=== PATIENT | female | born 1935 | race Caucasian/White ===

== ENCOUNTER 2016-11-06 16:54 | Emergency (ER) | payer MEDICARE, MEDICAID ==
[~2016-11-06] VITALS: Ht 152.4 cm; Wt 56.7 kg
[~2016-11-06 16:54] MED LIST: AMOX-427 PO; GUAI10SY3 PO; VALS40TA4 PO
--- NOTE | 2016-11-06 17:25 | NUR ---
BENCH JEWELER AT FOR BLOOD DRAW.
--- NOTE | 2016-11-06 17:28 | NUR ---
PT REFUSED IV AND MEDS. MADE AWARE.
[2016-11-06] MEDS ORDERED: IV NS 0.9% 1,000 ML BAG IV ONE (17:30)
[2016-11-06 17:32] LABS: BASOPHILS % (AUTO) 0.5 % (0.0-2.0); EOSINOPHILS # (AUTO) 0.1 /CMM (0.0-0.7); EOSINOPHILS % (AUTO) 0.9 % (0.0-6.0); HEMATOCRIT 36 % (33-45); HEMOGLOBIN 11.9 g/dL (11.5-14.8); LYMPHOCYTES # (AUTO) 4.3 /CMM (0.8-4.8); LYMPHOCYTES % (AUTO) 44.4 % (20.0-44.0); MEAN CORPUSCULAR HEMOGLOBIN 28 PG (26.0-33.0); MEAN CORPUSCULAR HGB CONC 33 g/dl (31.0-36.0); MEAN CORPUSCULAR VOLUME 85 fL (82-100); MONOCYTES # (AUTO) 0.9 /CMM (0.1-1.30); MONOCYTES % (AUTO) 9.2 % (2.0-12.0); NEUTROPHILS # (AUTO) 4.4 /CMM (1.8-8.9); PLATELET COUNT (AUTO) 228 /CMM (150-450); RDW COEFFICIENT OF VARIATION 13.1 (11.5-15.0); RED BLOOD CELL COUNT(AUTO) 4.31 MIL/uL (4.0-5.2); WHITE BLOOD COUNT (AUTO) 9.7 K/uL (4.3-11.0)
[2016-11-06 17:40] LABS: APPEARANCE,URINE Clear (CLEAR); BILIRUBIN,URINE Negative (NEGATIVE); BLOOD, URINE Small Ery/uL (NEGATIVE); COLOR,URINE Dark (YELLOW); KETONES,URINE Negative (NEGATIVE); LEUKOCYTE ESTERASE ,URINE Negative (NEGATIVE); NITRITE, URINE Negative (NEGATIVE); PROTEIN,URINE Negative (NEGATIVE); UGLUCOSE Negative (NEGATIVE); UROBILINOGEN,URINE 0.2 EU/dL (0.2)
[2016-11-06 17:51] LABS: ALANINE AMINOTRANSFERASE 20 U/L (12-78); ALBUMIN 3.7 g/dL (3.4-5.0); ALKALINE PHOSPHATASE 50 U/L (46-116); ASPARTATE AMINOTRANSFERASE 19 U/L (15-37); BILIRUBIN,DIRECT 0.1 mg/dL (0.0-0.2); BILIRUBIN,TOTAL 0.5 mg/dL (0.2-1.0); CALCIUM, SERUM 8.9 mg/dL (8.5-10.1); CARBON DIOXIDE 28 mmol/L (21-32); CHLORIDE 104 mmol/L (98-107); CREATININE 0.9 mg/dL (0.6-1.3); GLUCOSE 125 mg/dL (74-106); POTASSIUM 3.7 mmol/L (3.5-5.1); SODIUM SERUM 139 mmol/L (136-145); TOTAL PROTEIN, SERUM 7.4 g/dL (6.4-8.2); UREA NITROGEN, BLOOD 21 mg/dL (7-18)
[2016-11-06 17:53] LABS: TROPONIN I < 0.017 ng/mL (0.00-0.056)
[2016-11-06 18:04] LABS: BACTERIA,URINE Few /HPF (None Seen); MUCUS,URINE Many /LPF (None Seen); SQUAMOUS EPITHELIAL CELL,UR Many /HPF (None Seen); WBC,URINE 0-2 /HPF (0-3)
[2016-11-06 18:29] LABS: INR 0.95 (0.87-1.13); PROTHROMBIN TIME 9.9 SECS (9.5-12.7)
--- NOTE | 2016-11-06 18:34 | NUR ---
Patient discharged to home in stable condition. Written and verbal after care instructions given. Patient verbalizes understanding of instruction. Pt ambulatory with a steady gait.
[2016-11-06 18:35] VITALS: BP 126/62
== END 2016-11-06 18:39 | disposition home or self-care (01) ==
LOC: ER 16:58
DX: R05 Cough (principal); R52 Pain, unspecified; R53.1 Weakness; E11.9 Type 2 diabetes mellitus without complications; I10 Essential (primary) hypertension; R79.1 Abnormal coagulation profile; Z86.73 Personal history of transient ischemic attack (TIA), and cerebral infarction without residual deficits
CPT/HCPCS: 36415; 71010; 80048; 80076; 81001; 83605; 84484; 85025; 85730; 87040 ×2; 87086; 93005; 99285; A4606; 81000-TC; J7030; Z7610

== ENCOUNTER 2017-03-18 17:54 | Emergency (ER) | payer MEDICARE, MEDICAID ==
[~2017-03-18] VITALS: Ht 152.4 cm; Wt 61.2 kg
[2017-03-18 19:32] VITALS: BP 142/67
--- NOTE | 2017-03-18 22:05 | NUR ---
CALLED FOR TRIAGE; X3; NOT IN ANY LOBBY
--- NOTE | 2017-03-18 22:26 | NUR ---
CALLED AGAIN; INFORMED PT LEFT
== END 2017-03-18 22:27 | disposition left against medical advice (07) ==
LOC: ER 18:00
DX: R50.9 Fever, unspecified (principal)
CPT/HCPCS: A4606; Z7610

== ENCOUNTER 2017-12-30 18:35 | Emergency (ER) | payer MEDICARE, MEDICAID ==
[~2017-12-30] VITALS: Ht 160 cm; Wt 55.3 kg
[2017-12-30 19:14] VITALS: BP 131/72
== END 2017-12-30 20:44 | disposition home or self-care (01) ==
LOC: ER 18:36
DX: S92.515A Nondisplaced fracture of proximal phalanx of left lesser toe(s), initial encounter for closed fracture (principal); I10 Essential (primary) hypertension; E11.9 Type 2 diabetes mellitus without complications; Z90.89 Acquired absence of other organs; W22.8XXA Striking against or struck by other objects, initial encounter; Y93.01 Activity, walking, marching and hiking; Y92.89 Other specified places as the place of occurrence of the external cause; Y99.8 Other external cause status
CPT/HCPCS: 73600-TC; 73630-TC; A4606; Z7610

== ENCOUNTER 2018-10-24 15:35 | Emergency (ER) | payer MEDICARE, MEDICAID ==
[~2018-10-24] VITALS: Ht 157.5 cm; Wt 49.4 kg
--- NOTE | 2018-10-24 15:52 | NUR ---
BIB RA FOR RAPID HEART RATE OF 180 18MG OF ADENOSINE GIVEN IN FIELD" PT AAOX4, PT ON MONITOR, VSS, NAD NOTED, PENDING MD REYNOSO
[2018-10-24 16:08] LABS: BASOPHILS # (AUTO) 0.1 /CMM (0.0-0.2); BASOPHILS % (AUTO) 0.8 % (0.0-2.0); EOSINOPHILS % (AUTO) 0.8 % (0.0-6.0); HEMATOCRIT 36 % (33-45); HEMOGLOBIN 11.8 g/dL (11.5-14.8); LYMPHOCYTES # (AUTO) 4.6 /CMM (0.8-4.8); LYMPHOCYTES % (AUTO) 43.7 % (20.0-44.0); MEAN CORPUSCULAR HGB CONC 33 g/dl (31.0-36.0); MEAN CORPUSCULAR VOLUME 88 fL (82-100); MONOCYTES # (AUTO) 0.6 /CMM (0.1-1.30); NEUTROPHILS # (AUTO) 5.1 /CMM (1.8-8.9); NEUTROPHILS % (AUTO) 48.7 % (43.0-81.0); PLATELET COUNT (AUTO) 163 /CMM (150-450); RED BLOOD CELL COUNT(AUTO) 4.05 MIL/uL (4.0-5.2); WHITE BLOOD COUNT (AUTO) 10.5 K/uL (4.3-11.0)
[2018-10-24 16:16] LABS: CALCIUM, SERUM 8.9 mg/dL (8.5-10.1); CARBON DIOXIDE 24 mmol/L (21-32); CHLORIDE 104 mmol/L (98-107); GLUCOSE 97 mg/dL (74-106); POTASSIUM 3.6 mmol/L (3.5-5.1); SODIUM SERUM 140 mmol/L (136-145); UREA NITROGEN, BLOOD 29 mg/dL (7-18)
[2018-10-24 17:11] VITALS: BP 95/54
[2018-10-24] MEDS ORDERED: CYCL30DR OP (18:23)
[2018-10-24] MEDS ORDERED: RIVA10TA PO (18:23)
[2018-10-24] MEDS ORDERED: METO-356 PO (18:23)
[2018-10-24] MEDS ORDERED: CLON0.1T PO (18:23)
[2018-10-24] MEDS ORDERED: SACU1TAB PO (18:23)
[2018-10-24] MEDS ORDERED: SPIR25TA6 PO (18:23)
[2018-10-24] MEDS ORDERED: HYDR-4354 PO (18:23)
[2018-10-24] MEDS ORDERED: DOCU-141 PO (18:23)
[2018-10-24] MEDS ORDERED: FLUT16SP16 NS (18:23)
[2018-10-24] MEDS ORDERED: GABA-532 PO (18:23)
[2018-10-24] MEDS ORDERED: FURO-144 PO (18:23)
--- NOTE | 2018-10-24 19:15 | NUR ---
Patient does not wish to proceed with medical care recommended by Dr. Gonzalez. Patient given information related to possible complications, up to and including , which could occur as a result of leaving the hospital at this time. Patient verbalizes understanding of risks involved due to leaving against medical advice. Patient has signed AMA form.
== END 2018-10-24 19:15 | disposition left against medical advice (07) ==
LOC: ER 15:42
DX: I49.9 Cardiac arrhythmia, unspecified (principal); E86.0 Dehydration; I11.0 Hypertensive heart disease with heart failure; I50.9 Heart failure, unspecified; E11.9 Type 2 diabetes mellitus without complications; I45.10 Unspecified right bundle-branch block; Z95.5 Presence of coronary angioplasty implant and graft; Z90.89 Acquired absence of other organs; Z95.4 Presence of other heart-valve replacement; Z88.6 Allergy status to analgesic agent
CPT/HCPCS: 36415; 71045-TC; 80048-TC; 84484-TC; 85025-TC; 87081-TC

== ENCOUNTER 2020-10-25 12:07 | Outpatient (CLI) | payer MEDICARE, MEDICAID ==
[~2020-10-25 12:07] MED LIST changes: -AMOX-427 PO; +CLON0.1T PO; +CYCL30DR OP; +DOCU-141 PO; +FLUT16SP16 NS; +FURO-144 PO; +GABA-532 PO; -GUAI10SY3 PO; +HYDR-4354 PO; +METO25TA4 PO; +RIVA10TA PO; +SACU1TAB PO; +SPIR25TA6 PO; -VALS40TA4 PO
== END 2020-10-25 23:59 | disposition home or self-care (01) ==
LOC: RAD 12:07
PROVIDERS: ATTEND Internal Medicine Interventional Cardiology
DX: I25.10 Atherosclerotic heart disease of native coronary artery without angina pectoris (principal); I51.7 Cardiomegaly
CPT/HCPCS: 71250-TC

== ENCOUNTER 2021-02-09 13:33 | Inpatient (IN) | payer MEDICARE, OTHER ==
[~2021-02-09] VITALS: Ht 152.4 cm; Wt 63.5 kg
--- NOTE | 2021-02-09 13:33 | NUR ---
AVA RA89 FROM HOME PT C/O OF PALPATATION X2DAYS THAT WORSENED LAST NIGHT. PT IS A&OX4, BREATING IS REGULAR AND UNLABORED. PT IS TACHY ON MONITOR AND OTHER VITALS ARE WITHIN NORMAL LIMITS. PT WAS ATTCHED TO MONITOR AND PULSE OX. PT DAUGHTER IS AT BEDSIDE. WILL CONTINUE TO MONITOR.
--- NOTE | 2021-02-09 13:39 | NUR ---
LABS WERE COLLECTED AND SENT
--- NOTE | 2021-02-09 14:32 | NUR ---
X RAY AT BEDSIDE
[2021-02-09 14:36] LABS: BASOPHILS # (AUTO) 0.1 K/uL (0.0-0.2); BASOPHILS % (AUTO) 0.5 % (0.0-2.0); EOSINOPHILS % (AUTO) 0.4 % (0.0-6.0); HEMATOCRIT 37 % (33-45); LYMPHOCYTES # (AUTO) 6.2 K/uL (0.8-4.8); LYMPHOCYTES % (AUTO) 49.7 % (20.0-44.0); MEAN CORPUSCULAR HGB CONC 32 g/dl (31.0-36.0); MEAN CORPUSCULAR VOLUME 86 fL (82-100); MONOCYTES # (AUTO) 0.9 K/uL (0.1-1.30); MONOCYTES % (AUTO) 7.4 % (2.0-12.0); NEUTROPHILS # (AUTO) 5.2 K/uL (1.8-8.9); PLATELET COUNT (AUTO) 160 K/uL (150-450); RED BLOOD CELL COUNT(AUTO) 4.35 MIL/uL (4.0-5.2); WHITE BLOOD COUNT (AUTO) 12.4 K/uL (4.3-11.0)
[2021-02-09 14:44] LABS: CALCIUM, SERUM 8.1 mg/dL (8.5-10.1); CARBON DIOXIDE 29 mmol/L (21-32); CHLORIDE 105 mmol/L (98-107); CREATININE 0.9 mg/dL (0.6-1.3); GLUCOSE 107 mg/dL (74-106); POTASSIUM 3.7 mmol/L (3.5-5.1); SODIUM SERUM 140 mmol/L (136-145); UREA NITROGEN, BLOOD 21 mg/dL (7-18)
[2021-02-09 14:57] LABS: ALANINE AMINOTRANSFERASE 18 U/L (12-78); ALBUMIN 3.3 g/dL (3.4-5.0); ALKALINE PHOSPHATASE 47 U/L (46-116); ASPARTATE AMINOTRANSFERASE 19 U/L (15-37); BILIRUBIN,DIRECT 0.1 mg/dL (0.0-0.2); BILIRUBIN,TOTAL 0.5 mg/dL (0.2-1.0); TOTAL PROTEIN, SERUM 6.9 g/dL (6.4-8.2)
[2021-02-09] MEDS ORDERED: SACU1TAB7 PO (15:06)
[2021-02-09] MEDS ORDERED: METO25TA20 PO (15:06)
[2021-02-09] MEDS ORDERED: APIX2.5T PO (15:06)
[2021-02-09] MEDS ORDERED: AMLO-212 PO (15:06)
[2021-02-09] MEDS ORDERED: EZET10TA16 PO (15:06)
--- NOTE | 2021-02-09 15:22 | NUR ---
DR RICHARDS EXPLAINED TO PT FAMILY THAT HE WANTED TO PERFORM CARDIOVERTION AND EXPLAINED THE RISK AND BENEFITS. PT'S FAMILY DECLINED.
--- NOTE | 2021-02-09 15:22 | NUR ---
Maryuri cantuminna in ED - 02/09/21 at [address] RICHARDS EXPLAINED TO PT FAMILY THAT HE WANTED TO PERFORM CONVERTION AND EXPLAIN THE RISK AND BENEFITS. PT'S FAMILY DECLINED.
[2021-02-09] MEDS ORDERED: IV NS 0.9% 1,000 ML BAG IV ONE (15:30)
--- NOTE | 2021-02-09 15:33 | NUR ---
called in house cra for bed
--- NOTE | 2021-02-09 15:34 | NUR ---
covid swab collected and sent to lab.
--- NOTE | 2021-02-09 15:35 | NUR ---
SUBMITTED MOVE SHEET
--- NOTE | 2021-02-09 15:35 | NUR ---
CALLED NURSING SUP FOR BED
[2021-02-09] MEDS ORDERED: AMIODARONE 150 MG in IV D5W 100 ML IV ONE (16:00)
[2021-02-09] MEDS ORDERED: AMIODARONE 450 MG in IV D5W 241 ML IV PRN ×2 (16:30→18:00)
--- NOTE | 2021-02-09 17:41 | NUR ---
MIDLINE PLACED R UPPER ARM
[2021-02-09] MEDS ORDERED: ONDANSETRON HCL/PF 4 MG/2 ML VIAL IVP PRN (18:00)
[2021-02-09] MEDS ORDERED: ACETAMINOPHEN 325 MG TABLET PO PRN (18:00)
[2021-02-09] MEDS ORDERED: Z GUARD REMEDY 2 OZ OINT TP PRN (18:00)
[2021-02-09] MEDS ORDERED: FUROSEMIDE 20 MG/2 ML VIAL IV ONE (18:00)
[2021-02-09] MEDS ORDERED: FUROSEMIDE 20 MG/2 ML VIAL ONE (18:23)
--- NOTE | 2021-02-09 19:38 | NUR ---
RECIEVED REPORT FOR BRIA. PT AWAKE AND ALERT BREATHING EVEN AND UNLABORED NO COMPLAINTS AT THIS TIME. AMIODARONE RUNNING AT 33.3 ML/HR. PT REMAINS ON AUTOMATIC GLOVE FORMER AND RATE REMAINS BETWEEN 110-120S. WILL CONTINUE TO MONITOR.
--- NOTE | 2021-02-09 20:32 | NUR ---
TELE 306-2
--- NOTE | 2021-02-09 21:04 | NUR ---
REPORT GIVEN TO SHERRI GÓMEZ
[2021-02-09 21:17] VITALS: BP 108/70
--- NOTE | 2021-02-09 21:17 | NUR ---
ASSOCIATE MATERIAL HANDLER ADMITTING/OPENING NOTES PATIENT ARRIVED TO THE UNIT VIA GURNEY AT APPROXIMATELY 2117 ACCOMPANIED BY ER NURSE JÚNIOR. PATIENT WAS ORIENTED TO THE STAFF AND ROOM. DTR IS GOING TO STAY IN THE ROOM OVERNIGHT. NURSING SUPERVISORY NUSRAT AND CHARGE NURSE DEE DEE WAS MADE AWARE. ALERT AND ORIENTED X4. STABLE ON ROOM AIR. PATIENT'S CONNECTED TO AN EXTERNAL VAT TENDER SHOWING NO CARDIAC DISTRESS AT THIS TIME. SUZANNA ML NOTED RUNNING AMIODARONE AT. 33.3 CC/HR. PATIENT'S IN NO ACUTE DISTRESS AT THIS TIME. SAFETY MEASURES IN PLACE: BED LOCKED, BED ALARM ON, SIDE RAILS UPX3, AND CALL LIGHT WITHIN REACH OF THE PATIENT. WILL CONTINUE TO MONITOR THE PATIENT.
[2021-02-09 21:25] VITALS: BP 125/77
--- NOTE | 2021-02-09 21:26 | NUR ---
PT TRANSPORTED TO [facility] ON LIGHT BULB TESTER PER ACLS PROTOCOL WITH AMIODARONE INFUSING UPON ADMISSION AT 33.3 ML/HR. V/S STABLE AT TIME OF TRANSFER AND ALL BELONGINGS AND PT PAPERWORK TRANSPORTED WITH PATIENT.
[2021-02-10] VITALS: BP 108/70
--- NOTE | 2021-02-10 02:20 | NUR ---
[facility] MORTISER OPERATORMOLD ENGRAVER NOTES REPORT WAS GIVEN TO [facility] NURSE LASHONDA. PATIENT WAS TRANSFERRED TO [facility] AT APPROXIMATELY THIS TIME. PATIENT'S ALERT AND ORIENTED X4. STABLE ON ROOM AIR. PATIENT'S CONNECTED TO AN EXTERNAL CAGE MAKER MACHINE SHOWING NO CARDIAC DISTRESS AT THIS TIME. SUZANNA CORONEL NOTED RUNNING AMIODARONE AT 16.6 CC/HR. PATIENT'S WAS IN NO ACUTE DISTRESS DURING TRANSFER.
--- NOTE | 2021-02-10 02:30 | NUR ---
RN NOTES, RECEIVED PATIENT VIA BED FROM 3W FLOOR IN COMPANY OF DALIA HAYWARD AND GIO, AMIODARONE INFUSING AT THIS TIME AT 0.5MG, DAUGHTER WITH PATIENT, ASKING WHY PATIENT IS HERE, WHY PATIENT HAVE TO COME TO THIS FLOOR, ASKING TO TAKE BLOOD PRESSURE, DAUGHTER DEMANDING AND YELLING, EXPLAINED TO HER WHY PATIENT WAS MOVED TO [facility], EXPLAINED THAT PATIENT IN IN CARDIAC DRIP MEDICATION AND NEEDS CLOSELY MONITORING, DAUGHTER ASKING WHY PATIENT IS STILL IN THIS MEDICATION IF DR IN ER SAID ONLY 6 HOURS, EXPLAINED TO HER THAT THE MEDICATION HAS TO BE INFUSE FRO 24HRS, EXPLAINED SEVERAL TIMES, AND DAUGHTER FACE TIMING TO SOMEBODY OVER THE PHONE AND STATING THAT SHE WILL TAKE PATIENT OUT OF THE HOSPITAL, EXPLAINED TO THE DAUGHTER THAT I NEED TO INFORM MD AND EXPLAINED AGAIN RISKS AND BENEFITS REGARDING LEAVING AMA WHEN PATIENT IS IN CARDIAC DRIP MEDICATION, SHE SATED SHE DOESN'T CARE AND WILL TAKE PATIENT HOME, ASKED TO CHECK BLOOD PRESSURE BP AT THIS TIME 160/60, AND ASKING TO RECHECK AGAIN AND CHECK POSSIBLE GIVE MEDICATION TO PATIENT, INFORMED DAUGHTER THAT SHE NEEDS TO CALM DOWN AND MAKE MOM CALM DOWN BECAUSE THIS BP MAY BE INACCURATE, AND I NEED TO CHECK RHYTHM IN TELE MONITOR, AND WILL INFORM MD REGARDING AMA.
--- NOTE | 2021-02-10 02:45 | NUR ---
RN NOTES, AFTER RECHECKED BLOOD PRESSURE BP 140/70, AND NOTED NSR IN TELE MONITOR WITH HR 70S, WHEN PATIENT ARRIVED NOTED HR STILL GOING UP 130S.
--- NOTE | 2021-02-10 02:55 | NUR ---
RN NOTES, INFORMED MD THAT PATIENT'S DAUGHTER'S WANT TO TAKE PATIENT HOME, AND PATIENT IN IN AMIODARONE DRIP AND RISKS AND BENEFITS EXPLAINED TO DAUGHTER AND SHE STILL WANTS TO TAKE PATIENT HOME, MS REPLIED THAT THAT'S HER DECISION AND SHE WILL LEAVE AMA.
--- NOTE | 2021-02-10 03:03 | NUR ---
RN NOTES, PATIENT DAUGHTER SIGNED AMA PAPER, AND TOOK BELONGINGS WITH HER, MIDLINE IN SUZANNA REMOVED, APPLYING PRESSURE, TOOK MOM AGAINS MEDICAL ADVICE, AFTER RISKS AND BENEFITS EXPLAINED TO HER SEVERAL TIMES, DR ALETA MONACO, AND LIBRARIAN NUSRAT MENDIOLA AWARE. VITAL SIGNS STABLE.
[2021-02-10] MEDS ORDERED: AMLODIPINE BESYLATE 5 MG TABLET PO SCH (09:00)
[2021-02-10] MEDS ORDERED: Medication Not On Formulary EA (Sacubitril/Valsartan (Entresto 49 mg-51 mg Tablet) 1 TAB PO SCH (09:00)
[2021-02-10] MEDS ORDERED: METOPROLOL TARTRATE 25 MG TABLET PO SCH (09:00)
[2021-02-10] MEDS ORDERED: APIXABAN 2.5 MG TABLET PO SCH (09:00)
[2021-02-10] MEDS ORDERED: EZETIMIBE 10 MG TABLET PO SCH (09:00)
== END 2021-02-10 03:03 | disposition left against medical advice (07) | DRG 308 ==
LOC: ER 13:40 → TRANSITION 17:25 → TELE 20:33 → TELE1 02-10 02:35
PROVIDERS: ADMIT Nurse Practitioner Acute Care; ATTEND Nurse Practitioner Acute Care
PROC: 05H933Z Insertion of Infusion Device into Right Brachial Vein, Percutaneous Approach (ICD-10-PCS; principal; 2021-02-09)
DX: I48.91 Unspecified atrial fibrillation (principal); I50.33 Acute on chronic diastolic (congestive) heart failure; D68.59 Other primary thrombophilia; I48.92 Unspecified atrial flutter; Z86.73 Personal history of transient ischemic attack (TIA), and cerebral infarction without residual deficits; I11.0 Hypertensive heart disease with heart failure; E11.9 Type 2 diabetes mellitus without complications; Z95.3 Presence of xenogenic heart valve; Z90.49 Acquired absence of other specified parts of digestive tract; M19.90 Unspecified osteoarthritis, unspecified site; Z88.8 Allergy status to other drugs, medicaments and biological substances; Z79.899 Other long term (current) drug therapy; Z79.01 Long term (current) use of anticoagulants; I25.10 Atherosclerotic heart disease of native coronary artery without angina pectoris; D72.829 Elevated white blood cell count, unspecified; R79.89 Other specified abnormal findings of blood chemistry; Z20.822 Contact with and (suspected) exposure to COVID-19
CPT/HCPCS: 36415; 71045-TC; 80048-TC; 80076-TC; 83735-TC; 83880; 84484-TC; 85025-TC; 85378-TC; 85730-TC; 87081-TC; C9803; G0378; J0282; J1940; J7030; J7060